=== PATIENT | male | born 1970 | race Caucasian/White ===

== ENCOUNTER 2023-10-27 13:22 | Outpatient (AMB) | payer OTHER, SELFPAY ==
--- NOTE | 2023-10-27 13:33 | A.SPINEOV_ITS ---
Intake Visit Reasons: acute low back pain Intake Note: Mr. Peraza is here today c/o low back pain. 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 He is a 53-year-old morbidly obese male, BMI of 58, previous history of alcoholism, presents to the office today with 2 months pain in his low back which goes down into his left anterior thigh stopping at his knee. When it 1st started, he did have bilateral pain, but now it is primarily progressed to the left side. He has trouble with activity such as bending, walking as well as sitting and sleeping. Initially when it happened it was severe to a point where it was almost intolerable the now the pain is come down ever so slightly. He had been trying [id number] pain medications like Tylenol and Advil as well as gabapentin. These things do not help much. No cauda equina symptoms. He has not yet undergone any conservative treatment. He is here today for surgical evaluation in the setting of herniated disc at L3-4. PMH: He is history of diverticulitis with partial colectomy, herniorrhaphy, shoulder surgery, carpal tunnel release, vein stripping in his legs, hypertension, sleep apnea and morbid obesity Social hx: He quit drinking in 2021, he tells me was a very heavy drinker up to that point but does not know of any liver disease that he developed as result of that. Quit smoking in 2014. He occasionally smokes marijuana. Medications: Tylenol, Advil, gabapentin, losartan, clonidine, Trulicity, Campral, omeprazole, iron Allergies: He is allergic to lisinopril, it made him nauseous Physical exam: Morbidly obese no acute distress, he does walk with an antalgic gait, strength is intact in bilateral lower extremities, absent reflexes at the patella. Imaging review: Patient is a lumbar MRI done at [facility] showing at L3-4 on the left an acute herniated disc which appears to be tucked into the foramen. Impression: 53-year-old male presents with 2 months of left anterior thigh radiculopathy going into his knee switch seems most consistent with the small herniated disc fragment we see on the left at L3-[address] Klein and I reviewed the imaging together. Because the patient has not had any conservative treatment at this point we will need to start with at least a minimum of physical therapy, as well as possible cortisone injection. He has an upcoming appointment with Dr. Moura on November 01. We counseled the patient that typically 90% of these disc herniations will go away on their own and because of his size and some of the technical challenges of getting to the disc space itself, we should not brown into surgery and give this a chance to heal if it is going to. Surgery should ultimately be the last option. We did do flexion- extension x-rays to rule out instability, this does not show any signs of movement with flexion or extension, so if we did end up doing surgery would strictly be a left L3-4 extraforaminal approach metrics diskectomy. I would like to see him back in 6 weeks to re-evaluate. Thank you for allowing us to care for your patient. The total time spent with this visit with this patient was 45 minutes reviewing history, physical exam, lumbar imaging review, and implementation of treatment plan or further diagnostic testing Jacques Klein MD,PhD [facility] Orders: Orders XR lumbar spine 4V min Today M51.26 - Other intervertebral disc displacement, lumbar region PT Evaluation and Treatment Today M51.26 - Other intervertebral disc displacement, lumbar region Coding Level of Care Code New Pt Level 4 (56754) Diagnoses Lumbar disc herniation M51.26
== END 2023-10-27 14:53 | disposition home or self-care (01) ==
PROVIDERS: PCP Physician Assistant Medical; Referring Provider Physician Assistant; Visit Provider Physician Assistant
DX: M51.26 Other intervertebral disc displacement, lumbar region (principal)
CPT/HCPCS: 99204

== ENCOUNTER 2023-10-27 13:22 | Outpatient (REF) | payer OTHER, SELFPAY ==
--- NOTE | ~2023-10-27 | XR_ITS ---
EXAMINATION: XR LUMBOSACRAL SPINE WITH OBLIQUES CLINICAL INFORMATION: Intervertebral disc displacement lumbar region. COMPARISON: None available. TECHNIQUE: AP, lateral neutral, flexion and extension views of the lumbar spine. Severely limited visualization due to bowel gas and body habitus. FINDINGS: Mild rightward curvature of the lumbar spine. Surgical material overlying the pelvis difficult to characterize due to limited visualization. Facet arthritis in the fwg-fb-umfyj lumbar spine. Moderate multilevel lumbar spondylosis. Visualization particularly of L5-S1 severely limited. Minimal grade 1 retrolisthesis of L1 on L2, L2 on L3, and L3 on L4. XR/XR lumbar spine 4V min IMPRESSION: 1. Moderate multilevel lumbar spondylosis. Visualization particularly of L5-S1 severely limited. 2. Facet arthritis in the spm-zl-vdobf lumbar spine.
== END 2023-10-27 13:23 | disposition home or self-care (01) ==
LOC: HO.HOSX 13:22
PROVIDERS: PCP Physician Assistant Medical; Visit Provider Physician Assistant
DX: M51.26 Other intervertebral disc displacement, lumbar region (principal)
CPT/HCPCS: 72110; 99202

== ENCOUNTER 2023-12-11 13:07 | Outpatient (AMB) | payer OTHER, SELFPAY ==
--- NOTE | 2023-12-11 13:22 | A.SPINEOV_ITS ---
Intake Visit Reasons: 6 week F/u Intake Note: Mr. Peraza is here today for a 6 week F/u. 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 He has seen some success with the injection and the physical therapy but not enough to get him back to work. He is frustrated with his quality of life and the amount of pain he is in on daily basis. Dr. Klein and I had previously discussed the option of a left L3-4 far lateral diskectomy. He had imaging done at [facility] showing a disc herniation in the foramen and we thought that would be the best approach. He is morbidly obese and carries most of his weight in his abdomen. We explained to him at his previous visit that the technical challenges of getting down to the disc space and possibly not having retractors long enough to get there is a possibility so he should consider surgery very carefully. We again reviewed all the risks benefits, recovery of left L3-4 far lateral diskectomy. Total amount of time spent in this visit was 20 minutes in discussion of symptoms, lumbar MRI at [facility] imaging results and subsequent plan of care Jacques Klein MD,PhD [facility] Coding Level of Care Code Est Pt Level 3 (84954) Diagnoses Lumbar disc herniation M51.26
== END 2023-12-11 13:40 | disposition home or self-care (01) ==
PROVIDERS: PCP Physician Assistant Medical; Visit Provider Physician Assistant
DX: M51.26 Other intervertebral disc displacement, lumbar region (principal)
CPT/HCPCS: 99213

== ENCOUNTER → 2023-12-11 13:07 | Outpatient (BNVA) | payer OTHER, SELFPAY | PROVIDERS: PCP Physician Assistant Medical; Visit Provider Physician Assistant | DX: M51.26 Other intervertebral disc displacement, lumbar region (principal) | CPT/HCPCS: 99212 ==

== ENCOUNTER 2023-12-28 14:47 | Outpatient (AMB) | payer OTHER, SELFPAY ==
--- NOTE | 2023-12-28 15:21 | A.SPINEOV_ITS ---
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 Peraza is here to Discuss Surgery Allergies lisinopril Allergy (Unknown, Verified 10/27/23 13:34) Unknown Assessment & Plan Assessment & Plan (1) Lumbar disc herniation: Code(s): M51.26 - Other intervertebral disc displacement, lumbar region Category: Medical Plan Mr Peraza is back in the office today. He reports that the therapy in the injections really had no beneficial effect for his disc herniation at L3-4 on the left. The injection maybe gave him a few weeks of relief but nothing that lasted more than that. He tells me now that he is starting to actually get pain that goes down the back of his leg into his calf. He has not sure if this is new but it does feel all part of the same process that was going on that originally got him into our office. I went back and looked at his imaging again, I do not see anything compressing the L5 nerve eileen. With the change in the pattern of the radiculopathy that clearly does not fit with the L3 nerve root, we need to do another image to make sure were not missing something. His exam remains unremarkable. Total amount of time spent in this visit was 20 minutes in discussion of symptoms, [facility] lumbar spine imaging results and subsequent plan of care Jacques Klein MD,PhD [facility] Orders: Orders MR lumbar spine wo con Today M51.26 - Other intervertebral disc displacement, lumbar region Coding Level of Care Code Est Pt Level 3 (84263) Diagnoses Lumbar disc herniation M51.26
== END 2023-12-28 16:44 | disposition home or self-care (01) ==
PROVIDERS: PCP Physician Assistant Medical; Visit Provider Physician Assistant
DX: M51.26 Other intervertebral disc displacement, lumbar region (principal)
CPT/HCPCS: 99213

== ENCOUNTER → 2023-12-28 14:47 | Outpatient (BNVA) | payer OTHER, SELFPAY | PROVIDERS: PCP Physician Assistant Medical; Visit Provider Physician Assistant | DX: M51.26 Other intervertebral disc displacement, lumbar region (principal) | CPT/HCPCS: 99212 ==

== ENCOUNTER 2024-02-15 15:10 | Outpatient (AMB) | payer OTHER, SELFPAY ==
--- NOTE | 2024-02-15 15:12 | A.OFFVIS_ITS ---
Vital Signs 02/15/24 15:13 Height 5 ft 7 in Weight 415 lb BMI 65.0 Intake Visit Reasons: Fissure at 5o'clock, anorectal conditions Intake Note: This patient presents for anal fissure assessment. Pt c/o; Onset 1 month, reports had rectal bleeding in the past, reports rectal pain and discomfort. 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 Accompanied by: Self / Same As Patient Allergies lisinopril Allergy (Unknown, Verified 02/17/24 10:10) Unknown Medication List - Last Reconciled 02/15/24 by Tenzin Sousa MD acamprosate 666 mg PO TID acetaminophen ER (Arthritis Pain Relief (acetaminophen) ER) 650 mg PO Q8H albuterol sulfate 90 mcg/actuation (Ventolin HFA) inhalation albuterol sulfate mg inhalation clonidine HCl 0.1 mg PO DAILY CPAP As directed ferrous sulfate (FeroSul) mg PO fluticasone propion-salmeterol 115-21 mcg/actuation (Advair HFA) 2 puffs inhalation BID gabapentin 800 mg PO BID ibuprofen 600 mg PO Q6H PRN losartan 25 mg PO DAILY methylprednisolone 0 mg PO omeprazole 40 mg PO DAILY oseltamivir 75 mg PO BID semaglutide (Ozempic) mg subcut sertraline 100 mg PO DAILY sertraline 50 mg PO DAILY spironolactone 100 mg PO DAILY spironolactone 100 mg PO DAILY HPI HPI Fissure at 5o'clock, anorectal conditions: Details: 53-year-old male here because of anal pain. He says that he has had this for about 3 months now. He points to an area on the right perirectal area as where his pain and tenderness is. He says that he used to see some small amounts of blood as well with bowel movements. He describes some pain with bowel movements He feels that the area as ?swollen? frequently. He denies any discharge. [facility] Medical History (Updated 02/15/24 @ 15:40 by Tenzin Sousa MD) History of rib fracture Perianal abscess Hypertension GREGG (obstructive sleep apnea) Chronic back pain Morbid obesity Surgical History (Updated 02/17/24 @ 10:21 by Oanh Null CMA) Hx of wisdom tooth extraction Hx of vein stripping History of carpal tunnel surgery History of hernia repair History of colon resection Family History (Updated 02/16/24 @ 15:46 by Oanh Null CMA) Mother Breast cancer in situ Father Prostate cancer Other Family history unknown Social History (Updated 02/16/24 @ 15:46 by Oanh Null CMA) Alcohol intake: former Patient Tobacco Use Status: Former Tobacco user Review of Systems Const Denies chills and Denies fever(s) Card Denies chest pain, Denies dyspnea and Reports dyspnea on exertion Resp Denies cough, Denies dyspnea and Reports dyspnea on exertion GI Denies hematochezia and Denies change in bowel habits Denies hematuria and Denies difficulty urinating Musc Reports abnormal gait, Reports back pain and Reports limited range of motion Neuro Reports abnormal gait, Denies focal weakness and Denies convulsions Psych Denies depression and Denies mood swings Physical Exam Vital Signs: BMI result Body Mass Index 65.0 Const Other: Very morbidly obese General: comfortable Resp Effort & Inspection: normal respiratory effort Cardio Rate: regular rate GI Other: Rectal exam - tender induration on the right perianal area, about 2.5-3 cm, question of a sinus but no obvious drainage Palpation (GI): Soft to palpation Assessment & Plan Assessment & Plan (1) Perianal abscess: Code(s): K61.0 - Anal abscess Category: Medical Plan: He has chronic pain and tenderness on the right perianal area. Current exam suggest a perianal abscess with a fistula. It may be best to proceed with exam under anesthesia and possible I&D and seton placement. I explained to him the technique of this procedure. I reviewed the risks including but not limited to bleeding, infections, postop pain, as well as the benefits and alternatives. He is very morbidly obese and weighs 415 lb. I explained to him that this may present as a significant perioperative risk for him especially with airway control. I will set him up therefore for a preadmission testing. He understands and wants to proceed with surgery. Coding Level of Care Code New Pt Level 3 (90328) Diagnoses Perianal abscess K61.0
[2024-02-15 15:13] VITALS: BMI 65.0
== END 2024-02-15 15:39 | disposition home or self-care (01) ==
PROVIDERS: PCP Physician Assistant Medical; Referring Provider Physician Assistant Medical; Visit Provider Surgery
DX: K61.0 Anal abscess (principal)
CPT/HCPCS: 99204

== ENCOUNTER → 2024-02-15 15:10 | Outpatient (BNVA) | payer OTHER, SELFPAY | PROVIDERS: PCP Physician Assistant Medical; Referring Provider Physician Assistant Medical; Visit Provider Surgery | DX: K61.0 Anal abscess (principal); E66.01 Morbid (severe) obesity due to excess calories; Z68.44 Body mass index [BMI] 60.0-69.9, adult | CPT/HCPCS: 99202 ==

== ENCOUNTER → 2024-02-16 15:04 | Outpatient (BNVA) | payer OTHER, SELFPAY | PROVIDERS: PCP Physician Assistant Medical; Visit Provider Surgery ==

== ENCOUNTER 2024-03-11 07:57 | Outpatient (AMB) | payer OTHER, SELFPAY ==
--- NOTE | 2024-03-11 09:00 | A.OFFVIS_ITS ---
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 Allergies lisinopril Allergy (Unknown, Verified 03/11/24 09:00) Unknown Medication List - Last Reconciled 03/11/24 by Cabrera Pelaez MD acamprosate 666 mg PO TID acetaminophen ER (Arthritis Pain Relief (acetaminophen) ER) 650 mg PO Q8H albuterol sulfate 90 mcg/actuation (Ventolin HFA) inhalation albuterol sulfate mg inhalation clonidine HCl 0.1 mg PO DAILY CPAP As directed fluticasone propion-salmeterol 115-21 mcg/actuation (Advair HFA) 2 puffs inhalation BID gabapentin 800 mg PO BID ibuprofen 600 mg PO Q6H PRN losartan 25 mg PO DAILY omeprazole 40 mg PO DAILY semaglutide (Ozempic) mg subcut sertraline 100 mg PO DAILY sertraline 50 mg PO DAILY spironolactone 100 mg PO DAILY HPI HPI 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 juice, ETOH: none PFSH Medical History (Updated 03/11/24 @ 09:09 by Cabrera Pelaez MD) Lower extremity edema DJD (degenerative joint disease) Anxiety Depression Asthma GERD (gastroesophageal reflux disease) Obstructive sleep apnea on CPAP History of rib fracture Perianal abscess Hypertension GREGG (obstructive sleep apnea) Chronic back pain Morbid obesity Surgical History (Updated 02/17/24 @ 10:21 by Oanh Null CMA) Hx of wisdom tooth extraction Hx of vein stripping History of carpal tunnel surgery History of hernia repair History of colon resection Family History (Updated 02/16/24 @ 15:46 by Oanh Null CMA) Mother Breast cancer in situ Father Prostate cancer Other Family history unknown Social History (Updated 02/16/24 @ 15:46 by Oanh Null CMA) Alcohol intake: former Patient Tobacco Use Status: Former Tobacco user Telehealth Telehealth Telehealth Platform: Telephone Location of provider rendering services: practice address Location of patient: address on file Patient Identification confirmed using: Name, : Yes Telehealth method: voice only Patient verbally consented to treatment: Yes Patient verbally consented to billing insurance company: Yes Patient informed of any privacy concerns related to visit: Yes Minutes spent on Phone/Video with Pt.: 40 Assessment & Plan Assessment & Plan (1) Morbid obesity: Code(s): E66.01 - Morbid (severe) obesity due to excess calories Category: Medical Plan: 1.? Plan for lap sleeve gastrectomy. If diaphragmatic or ventral hernias are present at time of surgery, these will be repaired laparoscopically as well. Risks and complications include possible conversion to an open procedure, anastomotic leak, bleeding requiring transfusion, small bowel obstruction, , DVT and pulmonary embolism, cardiac, or pulmonary complications, as mcc complications such as anastomotic ulcer, insufficient weight loss and vitamin deficiencies. I emphasized the importance of close follow-up, adherence to instructions and good communication. 2. You will receive a link of our software dany to generate an individualized nutritional and exercise plan specific for you. Please send me a screenshot of the plans you will generate Meal to include lean meat (beef, fish, pork, turkey, chicken), or latvian yogurt, or egg whites, or beans with a salad with olive oil and fruits (berries, pears, apples, kiwi). Avoid salt, breads, potatoes, rice, pasta, desserts. ?3. If you choose shakes, each shake would be drunk slowly, like coffee in a period of 2 hours. ?4. If you choose bars, cut each bar in 4 pieces and eat each piece in 30min ?to make each bar last 2 hours. ?5. I emphasized the importance of measuring accurately the food portion and measure it when serving the food in plate ?6. The meal portions include a specific number of forks of meat and salad. You always eat the meat portion but you can replace up to half of salad/vegetables portion with rice, potatoes or pasta, or a fruit ?if you like. The less you do it the better weight loss will be. ?7. One full-size fork is what it can be scooped on the fork without falling aside and not what can be bit with the fork. Use regular forks like those you find in a typical restaurant. ?8.? Please send me weight measurements as soon as possible and then once a week. Always include your diet and exercise plan. 9. The best choice would be to purchase a stationary bike, elliptical or treadmill at home that can track calories. Let me know if you do so I can give you an exercise plan. ?10.?Goal is to lose at least 1.5-2lbs per week ?12. Goal to lose 10% of your weight before surgery, which is about 41lbs. Ultimate weight goal: 373lbs before surgery 13. Please follow the diet plan exactly without any change. If you don't like something about the plan or you feel hungry you need to communicate with me so I can help you revise the plan. You should not change the plan yourself. 14. To be scheduled for EGD due to history of GERD. The possibility of biopsies was discussed. Patient needs to avoid use of NSAIDs and aspirin for 1 week prior to EGD. Risks of perforation and bleeding was discussed with the patient. This will be an outpatient procedure with IV sedation. Orders: Orders Hemoglobin A1c Today E66.01 - Morbid (severe) obesity due to excess calories, G47.33 - Obstructive sleep apnea (adult) (pediatric), I10 - Essential (primary) hypertension, J45.909 - Unspecified asthma, uncomplicated, K21.9 - Gastro- esophageal reflux disease without esophagitis Lipid Panel Today E66.01 - Morbid (severe) obesity due to excess calories, G47.33 - Obstructive sleep apnea (adult) (pediatric), I10 - Essential (primary) hypertension, J45.909 - Unspecified asthma, uncomplicated, K21.9 - Gastro- esophageal reflux disease without esophagitis IRON PROFILE Today E66.01 - Morbid (severe) obesity due to excess calories, G47.33 - Obstructive sleep apnea (adult) (pediatric), I10 - Essential (primary) hypertension, J45.909 - Unspecified asthma, uncomplicated, K21.9 - Gastro- esophageal reflux disease without esophagitis Comprehensive Met. Panel Today E66.01 - Morbid (severe) obesity due to excess calories, G47.33 - Obstructive sleep apnea (adult) (pediatric), I10 - Essential (primary) hypertension, J45.909 - Unspecified asthma, uncomplicated, K21.9 - Gastro-esophageal reflux disease without esophagitis Vitamin B12 and Folate Today E66.01 - Morbid (severe) obesity due to excess calories, G47.33 - Obstructive sleep apnea (adult) (pediatric), I10 - Essential (primary) hypertension, J45.909 - Unspecified asthma, uncomplicated, K21.9 - Gastro-esophageal reflux disease without esophagitis Zinc Today E66.01 - Morbid (severe) obesity due to excess calories, G47.33 - Obstructive sleep apnea (adult) (pediatric), I10 - Essential (primary) hypertension, J45.909 - Unspecified asthma, uncomplicated, K21.9 - Gastro- esophageal reflux disease without esophagitis Vitamin B1 Today E66.01 - Morbid (severe) obesity due to excess calories, G47.33 - Obstructive sleep apnea (adult) (pediatric), I10 - Essential (primary) hypertension, J45.909 - Unspecified asthma, uncomplicated, K21.9 - Gastro- esophageal reflux disease without esophagitis Vitamin A Today E66.01 - Morbid (severe) obesity due to excess calories, G47.33 - Obstructive sleep apnea (adult) (pediatric), I10 - Essential (primary) hypertension, J45.909 - Unspecified asthma, uncomplicated, K21.9 - Gastro- esophageal reflux disease without esophagitis Ferritin Today E66.01 - Morbid (severe) obesity due to excess calories, G47.33 - Obstructive sleep apnea (adult) (pediatric), I10 - Essential (primary) hypertension, J45.909 - Unspecified asthma, uncomplicated, K21.9 - Gastro- esophageal reflux disease without esophagitis ECG 12 lead EKG Today E66.01 - Morbid (severe) obesity due to excess calories, G47.33 - Obstructive sleep apnea (adult) (pediatric), I10 - Essential (primary) hypertension, J45.909 - Unspecified asthma, uncomplicated, K21.9 - Gastro- esophageal reflux disease without esophagitis Insulin Today E66.01 - Morbid (severe) obesity due to excess calories, G47.33 - Obstructive sleep apnea (adult) (pediatric), I10 - Essential (primary) hypertension, J45.909 - Unspecified asthma, uncomplicated, K21.9 - Gastro- esophageal reflux disease without esophagitis H Pylori Breath Test Today E66.01 - Morbid (severe) obesity due to excess calories, G47.33 - Obstructive sleep apnea (adult) (pediatric), I10 - Essential (primary) hypertension, J45.909 - Unspecified asthma, uncomplicated, K21.9 - Gastro-esophageal reflux disease without esophagitis Complete Blood Count Auto Diff Today E66.01 - Morbid (severe) obesity due to excess calories, G47.33 - Obstructive sleep apnea (adult) (pediatric), I10 - Essential (primary) hypertension, J45.909 - Unspecified asthma, uncomplicated, K21.9 - Gastro-esophageal reflux disease without esophagitis C Reactive Protein Today E66.01 - Morbid (severe) obesity due to excess calories, G47.33 - Obstructive sleep apnea (adult) (pediatric), I10 - Essential (primary) hypertension, J45.909 - Unspecified asthma, uncomplicated, K21.9 - Gastro-esophageal reflux disease without esophagitis TSH reflex Free T4 Today E66.01 - Morbid (severe) obesity due to excess calories, G47.33 - Obstructive sleep apnea (adult) (pediatric), I10 - Essential (primary) hypertension, J45.909 - Unspecified asthma, uncomplicated, K21.9 - Gastro-esophageal reflux disease without esophagitis Vitamin D 25-OH Total Today E66.01 - Morbid (severe) obesity due to excess calories, G47.33 - Obstructive sleep apnea (adult) (pediatric), I10 - Essential (primary) hypertension, J45.909 - Unspecified asthma, uncomplicated, K21.9 - Gastro-esophageal reflux disease without esophagitis US abdomen comp w elastography Today E66.01 - Morbid (severe) obesity due to excess calories, G47.33 - Obstructive sleep apnea (adult) (pediatric), I10 - Essential (primary) hypertension, J45.909 - Unspecified asthma, uncomplicated, K21.9 - Gastro-esophageal reflux disease without esophagitis XR chest 2V Today E66.01 - Morbid (severe) obesity due to excess calories, G47.33 - Obstructive sleep apnea (adult) (pediatric), I10 - Essential (primary) hypertension, J45.909 - Unspecified asthma, uncomplicated, K21.9 - Gastro- esophageal reflux disease without esophagitis FL upper GI w air Today E66.01 - Morbid (severe) obesity due to excess calories, G47.33 - Obstructive sleep apnea (adult) (pediatric), I10 - Essential (primary) hypertension, J45.909 - Unspecified asthma, uncomplicated, K21.9 - Gastro-esophageal reflux disease without esophagitis Referrals Behavioral Health Referral E66.01 - Morbid (severe) obesity due to excess calories, G47.33 - Obstructive sleep apnea (adult) (pediatric), I10 - Essential (primary) hypertension, J45.909 - Unspecified asthma, uncomplicated, K21.9 - Gastro-esophageal reflux disease without esophagitis Nutrition/Dietitian Referral E66.01 - Morbid (severe) obesity due to excess calories, G47.33 - Obstructive sleep apnea (adult) (pediatric), I10 - Essential (primary) hypertension, J45.909 - Unspecified asthma, uncomplicated, K21.9 - Gastro-esophageal reflux disease without esophagitis
[2024-03-11 09:15] VITALS: BMI 63.9
== END 2024-03-11 09:34 | disposition home or self-care (01) ==
LOC: HO.HBS 07:57
PROVIDERS: PCP Physician Assistant Medical; Visit Provider Surgery
DX: E66.01 Morbid (severe) obesity due to excess calories (principal)
CPT/HCPCS: 99203

== ENCOUNTER → 2024-03-11 07:57 | Outpatient (BNVA) | payer OTHER, SELFPAY | PROVIDERS: PCP Physician Assistant Medical; Visit Provider Surgery ==

== ENCOUNTER 2024-03-16 14:40 | Outpatient (REF) | payer OTHER, SELFPAY ==
--- NOTE | ~2024-03-16 | XR_ITS ---
EXAMINATION: XR CHEST CLINICAL INFORMATION: E66.01 - Morbid (severe) obesity due to excess calories COMPARISON: 10/13/2019. TECHNIQUE: 2 views of the chest were obtained. FINDINGS: The cardiac, hilar, and mediastinal contours are normal. The lungs are clear bilaterally. No effusion or pneumothorax. Osseous structures demonstrate fixation of old rib fractures posterior right sixth through ninth ribs, with plate and screws. There are multilevel bulky disc osteophytes of the ventral and lateral thoracic spine. No suspicious bony abnormalities. XR/XR chest 2V IMPRESSION: No active pulmonary disease. Electronically signed by: Ike Hong MD 05/27/2024 02:23 PM [facility]
[2024-03-16 15:05] LABS: MANUAL DIFF FLAG NO
[2024-03-16 15:53] LABS: Basophils Absolute Auto 0.1 X10*3/uL (0.0-0.2); Basophils Percent Auto 0.3 % (0-2); Eosinophils Absolute Auto 0.1 X10*3/uL (0.0-0.4); Eosinophils Percent Auto 0.7 % (0-4); Hematocrit 41.1 % (42.0-52.0); Imm Gran Abs Auto 0.12 X10*3/uL (0.00-0.03); Imm Gran Pct Auto 0.8 % (0.0-0.4); Lymphocytes Absolute Auto 2.2 X10*3/uL (1.2-4.9); Lymphocytes Percent Auto 14.3 % (20-40); Mean Corpuscular HGB Conc 34.1 g/dl (31.0-36.0); Mean Corpuscular Hemoglobin 30.8 pg (27.0-33.0); Mean Corpuscular Volume 90.5 fL (80.0-98.0); Mean Platelet Volume 9.5 fL (9.4-12.4); Monocytes Absolute Auto 1.3 X10*3/uL (0.1-1.2); Monocytes Percent Auto 8.9 % (2-11); Neutrophils Absolute Auto 11.4 x10*3/uL (2.0-8.3); Platelet Count 242 X10*3/uL (160-400); Red Blood Count 4.54 X10*6/uL (4.60-5.80); Red Cell Distribution Width 11.9 % (11.0-16.0); White Blood Count 15.1 X10*3/uL (4.8-10.8)
[2024-03-16 16:00] LABS: Estimated Average Glucose 97 mg/dL; Total Hemoglobin (HGBA1C) 3501.2907 umol/L
[2024-03-16 16:24] LABS: Alanine Aminotransferase 30 U/L (0-40); Albumin Level 4.3 g/dL (3.5-5.0); Alkaline Phosphatase 69 U/L (39-117); Anion Gap 13 (12-20); Aspartate Amino Transferase 14 U/L (5-37); Bilirubin Total 0.6 mg/dL (0.0-1.0); Blood Urea Nitrogen 21 mg/dL (9-16); C Reactive Protein 0.62 mg/dL (< or = 0.50); Calcium 9.2 mg/dL (8.4-10.2); Carbon Dioxide 27 mmol/L (22-29); Chloride 101 mmol/L (96-108); Cholesterol 146 mg/dL (<200); Estimated Glomerular Filt Rate > 60; Glucose Random 92 mg/dL (60-115); HDL Cholesterol 49 mg/dL (>40); Iron 57 mcg/dL (45-160); LDL Cholesterol Calculated 77 mg/dL (<100); Percent Iron Saturation 22 % (15-50); Potassium 4.1 mmol/L (3.3-5.1); Sodium 137 mmol/L (135-145); Total Iron Binding Capacity 261 mcg/dL (228-428); Total Protein 7.5 g/dL (6.5-8.0); Triglycerides 100 mg/dL (<150); Unsaturated Iron Binding 204 ug/dL
[2024-03-16 16:41] LABS: Ferritin 376 ng/mL (20-250); Insulin 18 uU/mL (2-29); Vitamin D 25-OH Total 31.6 ng/mL (>30)
[2024-03-16 16:48] LABS: Folate 12.3 ng/mL (> or = 4.0); Vitamin B12 650 pg/mL (200-900)
[2024-03-20 22:59] LABS: Zinc 72 mcg/dL (60-130)
[2024-03-21 23:53] LABS: Vitamin A 63 mcg/dL (38-98)
[2024-03-23 15:38] LABS: Vitamin B1 15 nmol/L (8-30)
== END 2024-03-16 14:41 | disposition home or self-care (01) ==
LOC: HO.XRAY 14:40
PROVIDERS: PCP Physician Assistant Medical; Visit Provider Surgery
DX: E66.01 Morbid (severe) obesity due to excess calories (principal); I10 Essential (primary) hypertension; K21.9 Gastro-esophageal reflux disease without esophagitis; G47.33 Obstructive sleep apnea (adult) (pediatric); J45.909 Unspecified asthma, uncomplicated
CPT/HCPCS: 36415; 71046; 80053; 80061; 82306; 82607; 82728; 82746; 83036; 83525; 83540; 84425; 84443; 84590; 84630; 85025; 86140

== ENCOUNTER → 2024-03-16 15:04 | Outpatient (BNV) | payer OTHER, SELFPAY | PROVIDERS: PCP Physician Assistant Medical; Visit Provider Radiology Diagnostic Radiology | DX: E66.01 Morbid (severe) obesity due to excess calories (principal) | CPT/HCPCS: 71046 ==

== ENCOUNTER 2024-03-23 10:36 | Outpatient (AMB) | payer OTHER, SELFPAY ==
--- NOTE | 2024-03-23 10:44 | MHC.OFFVIS ---
Vital Signs 03/23/24 10:51 Height 5 ft 7.5 in Weight 414 lb BMI 63.9 Intake Visit Reasons: re-discuss surgery Intake Note: This patient presents to re-discuss surery. Pt c/o; re-discuss surgery and check it again . 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 I had actually seen him last February 14 and he was diagnosed to have anal fistula with a recurring abscess. He says that he has had this for about 4 months now. He points to an area on the right perirectal area as where his pain and tenderness is. He says that he used to see some small amounts of blood as well with bowel movements. He describes some pain with bowel movements He feels that the area as ?swollen? frequently. He denies any discharge. He had been sent to his primary care physician for evaluation as he wants to proceed with the surgery. He states that he had been cleared to had undergo exam under anesthesia and possible seton placement He denies any new complaints. [facility] Medical History Lower extremity edema DJD (degenerative joint disease) Anxiety Depression Asthma GERD (gastroesophageal reflux disease) Obstructive sleep apnea on CPAP History of rib fracture Perianal abscess Hypertension GREGG (obstructive sleep apnea) Chronic back pain Morbid obesity Surgical History Hx of wisdom tooth extraction Hx of vein stripping History of carpal tunnel surgery History of hernia repair History of colon resection Family History Mother Breast cancer in situ Father Prostate cancer Other Family history unknown Social History Alcohol intake: former Patient Tobacco Use Status: Former Tobacco user Review of Systems Const Denies chills and Denies fever(s) Card Denies chest pain, Denies dyspnea and Reports dyspnea on exertion Resp Denies cough, Denies dyspnea and Reports dyspnea on exertion GI Denies hematochezia and Denies change in bowel habits Denies hematuria and Denies difficulty urinating Musc Denies back pain and Denies limited range of motion Neuro Denies focal weakness and Denies convulsions Psych Denies depression and Denies mood swings Physical Exam Vital Signs: BMI result Body Mass Index 63.9 Const Other: Morbidly obese General: comfortable and no acute distress Orientation/consciousness: patient oriented x3 Neck Neck: Yes no lymphadenopathy Resp Auscultation: clear to auscultation bilaterally Cardio Rhythm: regular rhythm GI Other: Tender induration in the right perianal area, scanty drainage noted Palpation (GI): Soft to palpation, nontender and no guarding Neuro General: patient oriented x3 Assessment & Plan Assessment & Plan (1) Perianal abscess: Code(s): K61.0 - Anal abscess Category: Medical Plan: He has this recurrent abscess on the perianal area with what appears to be a fistulous disease. He has chronic pain and tenderness on the right perianal area. Current exam suggest a perianal abscess with a fistula. It may be best to proceed with exam under anesthesia and possible I&D and seton placement. I explained to him the technique of this procedure. I reviewed the risks including but not limited to bleeding, infections, postop pain, as well as the benefits and alternatives. He is very morbidly obese and weighs 415 lb. I explained to him that this may present as a significant perioperative risk for him especially with airway control. Coding Level of Care Code Est Pt Level 3 (74635) Diagnoses Perianal abscess K61.0
[2024-03-23 10:51] VITALS: BMI 63.9
== END 2024-03-23 10:58 | disposition home or self-care (01) ==
PROVIDERS: PCP Physician Assistant Medical; Visit Provider Surgery
DX: K61.0 Anal abscess (principal)
CPT/HCPCS: 99213

== ENCOUNTER → 2024-03-23 10:36 | Outpatient (BNVA) | payer OTHER, SELFPAY | PROVIDERS: PCP Physician Assistant Medical; Visit Provider Surgery | DX: K61.0 Anal abscess (principal) | CPT/HCPCS: 99212 ==

== ENCOUNTER 2024-04-08 07:21 | Day surgery (SDC) | payer OTHER, SELFPAY ==
[2024-03-30 14:26] VITALS: BMI 63.9
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
[2024-04-08 07:59] VITALS: BMI 64.8
[2024-04-08 08:17] VITALS: BP 125/75; PULSE 70; RESP 16; TEMP 36.6; O2SAT 97
[2024-04-08] MEDS: Lactated Ringers 1,000 ML 100 ML IVCONT (08:23)
[2024-04-08] MEDS: Albuterol Sulfate (0.083%) 2.5 MG/3 ML VIAL.NEB INHALE (08:32)
[2024-04-08 08:35] VITALS: PULSE 70; RESP 15; O2SAT 99
--- NOTE | 2024-04-08 08:58 | MHC.SHP ---
Pre-Procedural Eval Section A - 24 Hr Update-Section A only Date of Service: 04/08/24 The patient is an INPATIENT: No Changes since office visit: No Cold of Flu in the past 2 weeks, No New Medical Problems, No Changes in Medication and No Patient answered all questions The patient has been examined within 24 hours of the surgical procedure. The History & Physical has been completed within 30 days and I have reviewed it.: Yes Section B - Complete if H&P > 30 days Chief Complaint: Anal abscess Allergies: Allergies Allergy/AdvReac Type Severity Reaction Status Date / Time lisinopril Allergy Intermediate Cough Verified 04/08/24 07:54 sertraline AdvReac Intermediate Gastrointestinal Verified 04/08/24 07:54 Upset Plan I have reviewed the history and physical and performed a pertinent physical examination on my patient. No changes have occurred unless specified. Time Spent With Patient Time: Total time managing care of this patient today ____ minutes.
--- NOTE | 2024-04-08 09:59 | W.PM.OPN ---
Operative Note Operative Note Date of Service: 04/08/24 Narrative: Preop diagnosis: Recurrent swelling on perianal area,question of anal fistula Postop diagnosis: Large internal external hemorrhoids, no fistulous disease seen Procedure: Exam under anesthesia Surgeon: Tenzin Sousa MD The patient is a 53-year-old male who I had seen in the office because of this describe was recurrent swelling in the perianal area on the right side. Examination did show an area of induration and because of the recurrent nature, I explained to him it may be best to proceed with exam under anesthesia for possible fistula. I reviewed the technique of the procedure as well as the risks, benefits, and alternatives. He was brought to the operating room. He was placed in modified lithotomy position with monitored anesthesia care. The buttocks were retracted with wide tape laterally. The perianal area was prepped and draped in the usual sterile fashion. A surgical time-out was done. The patient received Cefotan 2 g IV preoperatively We retracted the buttocks on both sides to examined the perianal area well. The patient was very morbidly obese so exam was kind of difficult because of exposure. However, we are able to examine the perianal area adequately. He had large hemorrhoids on both the left and right side. I did not see any sinus or any induration. I inserted the Blum retractor. I examined the anal canal circumferentially. Again, visualization of the more proximal anal canal was difficult because of his habitus. However, there were no signs of any fistulous disease in the anal canal. I did thorough digital exam and did not feel any induration in the anal canal that would suggest fistulous disease or an abscess. The procedure was therefore completed . The patient tolerated procedure well. There were no immediate complications. He was brought back to the recovery room with stable vital signs.
[2024-04-08 10:08] VITALS: BP 129/63; PULSE 87; RESP 16; TEMP 36.8; O2SAT 95
[2024-04-08 10:23] VITALS: BP 123/66; PULSE 77; RESP 16; O2SAT 95
[2024-04-08 10:37] VITALS: BP 124/77; PULSE 72; RESP 16; TEMP 36.7; O2SAT 97
== END 2024-04-08 11:02 | disposition home or self-care (01) ==
PROVIDERS: PCP Physician Assistant Medical; Visit Provider Surgery
PROC: (CPT 45990; principal; 2024-04-08 09:20)
DX: K64.8 Other hemorrhoids (principal); K64.4 Residual hemorrhoidal skin tags; E66.01 Morbid (severe) obesity due to excess calories; Z68.44 Body mass index [BMI] 60.0-69.9, adult; I10 Essential (primary) hypertension; R73.03 Prediabetes; J42 Unspecified chronic bronchitis; F10.10 Alcohol abuse, uncomplicated; G47.33 Obstructive sleep apnea (adult) (pediatric); Z79.51 Long term (current) use of inhaled steroids; Z79.1 Long term (current) use of non-steroidal anti-inflammatories (NSAID); Z79.899 Other long term (current) drug therapy; Z99.89 Dependence on other enabling machines and devices; Z88.0 Allergy status to penicillin; Z87.891 Personal history of nicotine dependence
CPT/HCPCS: 45990; 94640; J2003; J2250; J2704; J2795; J3010

== ENCOUNTER → 2024-04-08 07:21 | Outpatient (BNV) | payer OTHER, SELFPAY | PROVIDERS: PCP Physician Assistant Medical; Visit Provider Surgery | DX: K61.0 Anal abscess (principal) | CPT/HCPCS: 45990 ==

== ENCOUNTER 2024-04-21 11:20 | Outpatient (AMB) | payer OTHER, SELFPAY ==
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
== END 2024-04-21 11:52 | disposition home or self-care (01) ==
PROVIDERS: PCP Physician Assistant Medical; Visit Provider Surgery
DX: K62.89 Other specified diseases of anus and rectum (principal)
CPT/HCPCS: 99213

== ENCOUNTER → 2024-04-21 11:20 | Outpatient (BNVA) | payer OTHER, SELFPAY | PROVIDERS: PCP Physician Assistant Medical; Visit Provider Surgery | DX: K62.89 Other specified diseases of anus and rectum (principal); K64.4 Residual hemorrhoidal skin tags; K64.8 Other hemorrhoids; Z48.815 Encounter for surgical aftercare following surgery on the digestive system; Z98.890 Other specified postprocedural states | CPT/HCPCS: 99212 ==

== ENCOUNTER 2024-04-26 18:42 | Emergency (ER) | payer OTHER, SELFPAY ==
[2024-04-26 18:43] VITALS: BP 134/90; PULSE 100; RESP 19; TEMP 36.6; O2SAT 97; BMI 67.3
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
[2024-04-26 19:43] VITALS: BP 107/60; PULSE 80; RESP 20; TEMP 36.9; O2SAT 96
[2024-04-26] MEDS: Diphth,Pertus(ACell),Tet Adult 0.5 ML SYRINGE IM (20:40)
[2024-04-26] MEDS: Lidocaine HCl 1%/Epi 1:100,000 10 ML VIAL INFILTRATI (20:40)
[2024-04-26 20:49] VITALS: BP 134/68; PULSE 78; RESP 18; TEMP 36.6; O2SAT 98
== END 2024-04-26 20:50 | disposition home or self-care (01) ==
PROVIDERS: Emergency Provider Emergency Medicine; PCP Physician Assistant Medical
DX: S81.811A Laceration without foreign body, right lower leg, initial encounter (principal); M79.604 Pain in right leg; W01.0XXA Fall on same level from slipping, tripping and stumbling without subsequent striking against object, initial encounter; Y93.89 Activity, other specified; Y92.89 Other specified places as the place of occurrence of the external cause; Y99.8 Other external cause status; Z79.899 Other long term (current) drug therapy; Z87.891 Personal history of nicotine dependence; Z23 Encounter for immunization
CPT/HCPCS: 12032; 90471; 90715; 99284; J2004

== ENCOUNTER 2025-02-17 08:14 | Outpatient (AMB) | payer OTHER, SELFPAY ==
--- OUTSIDE RECORDS SUMMARY | 2025-02-17 08:22 | XMS_ITS | Encounter Summary ---
Author Organization [facility] Address [address] [place] [address] Care Team Providers Care Textile Dyer Name Role Phone Jacques King Primary Care Provider [phone] Reason for Visit * Reason Onset Date Comments Forms/questionnaires 01/16/2025 Encounter Details Date Type Department Care Team ([facility] st Contact Info) Description 01/16/2025 Telephone Adult Medicine [facility] [address] [place] [phone] Jacques King PA [address], [place] [id number] Forms/questionnaires Social History Tobacco Use Types Packs/Day Years Used Date Smoking Tobacco: Former Cigarettes Q uit: 07/31/2014 Smokeless Tobacco: Former Quit: 06/29/2012 Alcohol Use Standard Drinks/Week Comments Not Currently 0 (1 standard drink = 0.6 oz pur e alcohol) Housing Instability Answer Date Recorde d Are you worried that in the next 2 months you may not have stable housing? No 05/09/2024 Food Access & Nutrition Answer Date Rec orded Do you have access to a vari ety of food including fruits and vegetables? Yes 05/09/2024 Access to Healthcare Answer Date Record ed Within the last 3 months, ho w many times did you visit the emergency department for your medical care? 1 05/09/2024 Health Literacy Answer Date Recorded How often do you need to hav e someone help you when you read instructions, pamphlets, or other written material from your doctor or pharmacy? Never 05/09/2024 Caregiver: How often do you need to have someone help you when you read instructions, pamphlets, or other written material from your doctor or pharmacy? Not on file 05/09/2024 Financial Risk Answer Date Recorded How hard is it for you to pa y for the very basics like food, housing, medical care, and air conditioning / heating? Somewhat hard 05/09/2024 Transportation Answer Date Recorded Has the lack of transportati on kept you from meetings, work, or from getting things needed for daily living? No Has the lack of transportati on kept you from medical appointments or from getting medications? No 05/09/2024 Social Isolation Answer Date Recorded How often do you feel lonely or isolated from th ose around you? Often 05/09/2024 Food Risk Answer Date Recorded Within the past 12 months we worried whether our food would run out before we got money to buy more. Never true 05/09/2024 Within the past 12 months th e food we bought just didn't last and we didn't have money to get more. Never true 05/09/2024 Dependent Care Answer Date Recorded Do you need help finding or paying for care for your loved ones. For example, child adolescent psychiatrist or elderly care for an older adult? No 05/09/2024 Education Answer Date Recorded Do you think completing more education or training, like finishing a GED, going to college, or learning a trade, would be helpful for you? No 05/09/2024 Employment and Income Answer Date Recor ded During the last four weeks, have you been actively looking for work? No 05/09/2024 Living Situation Answer Date Recorded What is your living situation? 1 07/09/2023 Sex and Gender Information Value Date Recorded Sex Assigned at Male 09/05/2024 1:36 PM EDT Legal Sex Male 7:18 PM EST Gender Identity Male 09/05/2024 1:36 PM EDT Sexual Orientation Straight 09/05/2024 1: 36 PM EDT documented as of this encounter Progress Notes * Emilie Watkinsacaj - 01/16/2025 1:28 PM EDT Chip Hardwick faxed over 12/25, have you received the long disability form, patient looking for a status. documented in this encounter Plan of Treatment Upcoming Encounters Date Type Department Care Team (Late st Contact Info) Description 02/22/2025 2:45 PM EDT Office Visit Pulmonolgy - [place] [facility] [address] [place] [phone] Marshall Vieira MD [address] [address] 03/09/2025 2:00 PM EDT Nutrition Internal Medicine - [place] [address] [phone] [place] [phone] 04/03/2025 10:30 AM EDT Office Visit Orthopedic Surgery - [place] [address] [phone] Dallas Akbar DPM [address] [address] documented as of this encounter Goals Goal Patient Goal Type Associated Problems Recent Progress Patient-Stated? Author lymph edema General Yes Katherine Santacruz P, OTR/L Note: TO get rid of the swelling in my legs and for my wound to heal to reduce lymph edema General No Katherine Santacruz P, OTR/L Note: STG; patient will present with decreased lymph edema in both LE's LTG patient will present with decreased lymph edema in both LE's resulting in healing wound in right leg self management General No Katherine Santacruz P, OTR/L Note: STG; Patient will be able to demo at least 3 exercises to increase lymph flow LTG: patient will have appropriate compression in place which he is able to don/ doff Decrease Wound Volume by X% by date (in notes) Care Plan Impaired Tissue Improving( 2:29 PM EST) Maria E Graves RN Note: 06/24/24 stopped bilateral Coban 2, start using pt's own compression stockings, asked if pt has supplies to change dressing and pt states he does. Patient and Caregiver Understand Wound Care Education Care Plan Impaired Tissue On track( 025 2:29 PM EST) Maria E Graves RN Note: Education ongoing Wound volume breakdown reduced by X% by week 4 Care Plan Impaired Tissue Maria E Graves RN Wound volume breakdown reduced by X% by week 8 Care Plan Impaired Tissue Maria E Graves RN Wound volume breakdown reduced by X% by week 12 Care Plan Impaired Tissue No Maria E Suarez RN Quit using tobacco (cigarettes, smokeless, etc) Care Plan Education needed on impact of smoking on wound Maria E Graves RN Reduce tobacco use (cigarettes, smokeless, etc) Care Plan Education needed on impact of smoking on wound Maria E Graves RN Decrease Wound Volume by X% by date (in notes) Care Plan Education needed on impact of smoking on wound Maria E Graves RN Patient and Caregiver Understand Wound Care Education Care Plan Education needed related to ulceration/comp romised skin integrity. No Maria E Suarez RN documented as of this encounter Visit Diagnoses Not on filedocumented in this encounter Additional Health Concerns Active Problems Noted Date Diagnosed Date Impaired Tissue 06/08/2024 Education needed on impact of smoking on wound 1 08/09/2023 Education needed related to ulceration/compromised skin integrity. 06/08/2024 Assessment Noted Time PHQ-9 Depression Total Score: 7 09/18/19 25 9:58 PM EDT documented as of this encounter Care Teams Textile Dyer Relationship Specialty Start Date End Date Jacques King PA [address] [place] [address] PCP - General Internal Medicine 05/14/20 documented as of this encounter
[2025-02-17 13:06] VITALS: BMI 76.0
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
== END 2025-02-17 13:34 | disposition home or self-care (01) ==
LOC: HO.HBS 08:14
PROVIDERS: PCP Physician Assistant Medical; Visit Provider Surgery
DX: E66.01 Morbid (severe) obesity due to excess calories (principal); Z68.45 Body mass index [BMI] 70 or greater, adult
CPT/HCPCS: 98014